=== PATIENT | female | born 1965 | race Caucasian/White ===

== ENCOUNTER 2018-01-30 10:13 | Emergency (ER) | payer BC ==
[2018-01-30] MEDS ORDERED: ALBUTEROL 2.5 MG/3 ML NEB SOL ONE ×2 (11:20→11:56)
[2018-01-30] MEDS ORDERED: IPRATROPIUM BROM 0.5MG/2.5ML ONE (11:20)
--- NOTE | 2018-01-30 12:29 | ER ---
Nurse's Notes [facility] Name: Angela Hernandez Age: 52 yrs Sex: Female : 1965 Arrival Date: 01/30/2018 Time: 10:15 Bed 14 Private MD: Diagnosis: Cough;Pneumonia, unspecified organism Presentation: 01/30 10:21 Presenting complaint: Patient states: "I've had a cough for about a month now and its aj1 just gotten worse, and I can't cough anything up. This morning it started feeling like I have a broke rib or something" Reports pain to left side, that is worse when she takes a deep breath. Denies fever. Transition of care: patient was not received from another setting of care. Onset of symptoms was December 2017. Risk Assessment: Do you want to hurt yourself or someone else? Patient reports no desire to harm self or others. Initial Sepsis Screen: Does the patient meet any 2 criteria? No. Patient's initial sepsis screen is negative. Does the patient have a suspected source of infection? No. Patient's initial sepsis screen is negative. Care prior to arrival: None. 10:21 Method Of Arrival: Ambulatory aj1 10:21 Acuity: CARLOS 4 aj1 Triage Assessment: 10:25 General: Appears in no apparent distress. comfortable, Behavior is calm, cooperative, aj1 appropriate for age. Pain: Complains of pain in left lateral posterior chest and left lateral anterior chest Pain currently is 0 out of 10 on a pain scale. at worst was 5 out of 10 on a pain scale. Quality of pain is described as sharp, Aggravated by deep breathing. Neuro: Level of Consciousness is awake, alert, obeys commands. Cardiovascular: Patient's skin is warm and dry. Respiratory: Reports cough that is non-productive, Airway is patent Respiratory effort is even, unlabored, Respiratory pattern is regular, symmetrical, Breath sounds with wheezes bilaterally. 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 - Social history:: Smoking status: Patient uses tobacco products, smokes one-half pack cigarettes per day. - Ebola Screening: : Patient denies travel to an Ebola-affected area in the 21 days before illness onset. Screenin:49 Abuse screen: Denies threats or abuse. Denies injuries from another. Nutritional ch screening: No deficits noted. Tuberculosis screening: No symptoms or risk factors identified. Fall Risk None identified. Assessment: 10:49 General: Appears in no apparent distress. comfortable, Behavior is calm, cooperative, ch appropriate for age. Pain: Complains of pain in chest and left lateral anterior chest and left lateral posterior chest Pain currently is 4 out of 10 on a pain scale. Pain began gradually. Neuro: No deficits noted. Respiratory: Reports shortness of breath cough that is pain with cough pain with respiration Airway is patent Respiratory effort is even, labored, with retractions, Respiratory pattern is tachypnea Breath sounds are coarse Breath sounds with crackles Breath sounds with rhonchi bilaterally. GI: No signs and/or symptoms were reported involving the gastrointestinal system. Derm: Skin is pink, warm \\T\\ dry. 11:33 Reassessment: Patient appears in no apparent distress at this time. Patient and/or ch family updated on plan of care and expected duration. Pain level reassessed. neb treatment stopped for pt to go to X ray. neb treatment restarted upon her return Patient states feeling better. 13:02 Reassessment: Patient appears in no apparent distress at this time. Patient and/or ch family updated on plan of care and expected duration. Pain level reassessed. Patient is alert, oriented x 3, equal unlabored respirations, skin warm/dry/pink. lung sounds much improved, pt is still wheezy but it is much better. TONE STATES HE NEEDS TO CHANGE THE DISCHARGE INSTRUCTIONS. AWAITING DISCHARGE INSTRUCTION PAPERS. Patient states feeling better. Patient states symptoms have improved. Vital Signs: 10:25 BP 116 / 76; Pulse 66; Resp 18; Temp 97.4; Pulse Ox 96% on R/A; Weight 62.14 kg (R); aj1 Height 5 ft. 6 in. (167.64 cm) (R); Pain 0/10; 11:33 BP 116 / 73; Pulse 61; Resp 24; Pulse Ox 98% on Nebulizer Mask; Pain 0/10; ch 12:09 BP 114 / 68; Pulse 55; Resp 14; Temp 98.1; Pulse Ox 99% on Nebulizer Mask; Pain 0/10; ch 13:03 BP 110 / 52; Pulse 71; Resp 16; Temp 99.1; Pulse Ox 97% on R/A; Pain 0/10; ch 10:25 Body Mass Index 22.11 (62.14 kg, 167.64 cm) aj1 ED Course: 10:15 Patient arrived in ED. as 10:24 Triage completed. aj1 10:25 Arm band placed on Patient placed in an exam room. aj1 10:45 Tone Parsons, DEYVI is PHCP. pm1 10:45 Piero Zamorano MD is Attending Physician. pm1 10:46 Yancy Jackson, LINA is Primary Nurse. ch 10:49 No apparent distress. Resting quietly. ch 10:49 Placed in gown. Bed in low position. Call light in reach. Side rails up X 1. Pulse ox ch on. NIBP on. 11:00 No apparent distress. Resting quietly. ch 11:00 Warm blanket given. ch 11:00 No provider procedures requiring assistance completed. Patient did not have IV access ch during this emergency room visit. 11:23 X-ray completed. Patient tolerated procedure well. Patient moved back from radiology. ls3 11:24 Chest Pa And Lat (2 Views) XRAY In Process Unspecified. EDMS Administered Medications: 11:10 Drug: Albuterol 2.5 mg Route: Inhalation; ch 12:08 Follow up: Response: No adverse reaction; Marked relief of symptoms ch 11:10 Drug: AtroVENT Aerosol 0.5 mg Route: Inhalation; ch 12:08 Follow up: Response: No adverse reaction; Marked relief of symptoms ch 11:30 Drug: Albuterol 2.5 mg Route: Inhalation; ch 12:08 Follow up: Response: No adverse reaction; Marked relief of symptoms ch 11:32 Not Given (pt does not have a ride home. ): Tussionex Pennkinetic ER 5 ml PO once ch 11:50 Drug: predniSONE 60 mg Route: PO; ch 13:02 Follow up: Response: No adverse reaction; Marked relief of symptoms ch 12:50 Drug: Rocephin (cefTRIAXone) 1 grams Route: IM; Site: left gluteus; ch 13:02 Follow up: Response: No adverse reaction ch Outcome: 12:28 Discharge ordered by . pm1 13:13 Discharged to home ambulatory. aj1 13:13 Condition: stable 13:13 Discharge instructions given to patient, Instructed on discharge instructions, follow up and referral plans. medication usage, Demonstrated understanding of instructions, follow-up care, medications, Prescriptions given X 4. 13:13 Patient left the ED. aj1 Signatures: Dispatcher [employer] EDMS Yancy Jackson RN RN ch Johnson, Angela, RN RN aj1 Radha Law Patrick, NP RESPIRATORY THERAPY AIDE pm1 Antonio Lynn ls3
--- NOTE | 2018-01-30 12:29 | EDPHYS ---
Physician Documentation [facility] Name: Angela Hernandez Age: 52 yrs Sex: Female : 1965 Arrival Date: 01/30/2018 Time: 10:15 Bed 14 Private MD: ED Physician Piero Zamorano HPI: 01/30 11:05 This 52 yrs old Female presents to ER via Ambulatory with complaints of Cough.pm1 11:05 The patient or guardian reports cough, with no sputum. Onset: The symptoms/episode pm1 began/occurred 1 month(s) ago. Severity of symptoms: in the emergency department the symptoms are actually worse. Modifying factors: The symptoms are alleviated by nothing, the symptoms are aggravated by nothing. Associated signs and symptoms: Pertinent negatives: chest pain, ear ache, fever, nausea, rhinorrhea, sore throat, vomiting. The patient has not experienced similar symptoms in the past. The patient has not recently seen a physician. 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 - Social history:: Smoking status: Patient uses tobacco products, smokes one-half pack cigarettes per day. - Ebola Screening: : Patient denies travel to an Ebola-affected area in the 21 days before illness onset. ROS: 11:05 Constitutional: Negative for fever, chills, and weight loss, Eyes: Negative for injury, pm1 pain, redness, and discharge, ENT: Negative for injury, pain, and discharge, Neck: Negative for injury, pain, and swelling, Cardiovascular: Negative for chest pain, palpitations, and edema. 11:05 Back: Negative for injury. Left rib pain with deep inspiration : Negative for injury, bleeding, discharge, and swelling, MS/Extremity: Negative for injury and deformity, Skin: Negative for injury, rash, and discoloration, Neuro: Negative for headache, weakness, numbness, tingling, and seizure. 11:05 Respiratory: Positive for cough, Negative for shortness of breath, sputum production. Exam: 11:05 Constitutional: This is a well developed, well nourished patient who is awake, alert, pm1 and in no acute distress. Head/Face: Normocephalic, atraumatic. Eyes: Pupils equal round and reactive to light, extra-ocular motions intact. Lids and lashes normal. Conjunctiva and sclera are non-icteric and not injected. Cornea within normal limits. Periorbital areas with no swelling, redness, or edema. ENT: Nares patent. No nasal discharge, no septal abnormalities noted. Tympanic membranes are normal and external auditory canals are clear. Oropharynx with no redness, swelling, or masses, exudates, or evidence of obstruction, uvula midline. Mucous membranes moist. Neck: Trachea midline, no thyromegaly or masses palpated, and no cervical lymphadenopathy. Supple, full range of motion without nuchal rigidity, or vertebral point tenderness. No Meningismus. Chest/axilla: Normal chest wall appearance and motion. Nontender with no deformity. No lesions are appreciated. Cardiovascular: Regular rate and rhythm with a normal S1 and S2. No gallops, murmurs, or rubs. Normal PMI, no JVD. No pulse deficits. 11:05 Abdomen/GI: Soft, non-tender, with normal bowel sounds. No distension or tympany. No guarding or rebound. No evidence of tenderness throughout. Back: No spinal tenderness. No costovertebral tenderness. Full range of motion. Skin: Warm, dry with normal turgor. Normal color with no rashes, no lesions, and no evidence of cellulitis. MS/ Extremity: Pulses equal, no cyanosis. Neurovascular intact. Full, normal range of motion. 11:05 Respiratory: the patient does not display signs of respiratory distress, Respirations: normal, Breath sounds: wheezing: expiratory is scattered. 11:05 Neuro: Orientation: is normal, Motor: is normal, moves all fours, Gait: is steady, at a normal pace, without difficulty. Vital Signs: 10:25 BP 116 / 76; Pulse 66; Resp 18; Temp 97.4; Pulse Ox 96% on R/A; Weight 62.14 kg (R); aj1 Height 5 ft. 6 in. (167.64 cm) (R); Pain 0/10; 11:33 BP 116 / 73; Pulse 61; Resp 24; Pulse Ox 98% on Nebulizer Mask; Pain 0/10; ch 12:09 BP 114 / 68; Pulse 55; Resp 14; Temp 98.1; Pulse Ox 99% on Nebulizer Mask; Pain 0/10; ch 13:03 BP 110 / 52; Pulse 71; Resp 16; Temp 99.1; Pulse Ox 97% on R/A; Pain 0/10; ch 10:25 Body Mass Index 22.11 (62.14 kg, 167.64 cm) aj1 MDM: 10:48 Patient medically screened. pm1 12:27 Data reviewed: vital signs. Data interpreted: Pulse oximetry: on room air is 99 %. pm1 Interpretation: normal. Counseling: I had a detailed discussion with the patient and/or guardian regarding: the historical points, exam findings, and any diagnostic results supporting the discharge/admit diagnosis, radiology results, the need for outpatient follow up, to return to the emergency department if symptoms worsen or persist or if there are any questions or concerns that arise at home, smoking cessation. 01/30 10:52 Order name: Chest Pa And Lat (2 Views) XRAY; Complete Time: 12:59 pm1 Administered Medications: 11:10 Drug: Albuterol 2.5 mg Route: Inhalation; ch 12:08 Follow up: Response: No adverse reaction; Marked relief of symptoms ch 11:10 Drug: AtroVENT Aerosol 0.5 mg Route: Inhalation; ch 12:08 Follow up: Response: No adverse reaction; Marked relief of symptoms ch 11:30 Drug: Albuterol 2.5 mg Route: Inhalation; ch 12:08 Follow up: Response: No adverse reaction; Marked relief of symptoms ch 11:32 Not Given (pt does not have a ride home. ): Tussionex Pennkinetic ER 5 ml PO once ch 11:50 Drug: predniSONE 60 mg Route: PO; ch 13:02 Follow up: Response: No adverse reaction; Marked relief of symptoms ch 12:50 Drug: Rocephin (cefTRIAXone) 1 grams Route: IM; Site: left gluteus; ch 13:02 Follow up: Response: No adverse reaction ch Disposition: 17:46 Co-signature as Attending Physician, Piero Zamorano MD. rn Disposition: 01/30/18 12:28 Discharged to Home. Impression: Cough, Pneumonia, unspecified organism. - Condition is Stable. - Discharge Instructions: How to Use an Inhaler, Community-Acquired Pneumonia, Adult, Steps to Quit Smoking. - Prescriptions for Zithromax Z- Dandre 250 mg Oral Tablet - take 1 tablet by ORAL route as directed for 5 days Day 1 - take two (2) tablets one time. Day 2, 3, 4 , 5 take one (1) tablet once daily.; 6 tablet. Medrol (Dandre) 4 mg Oral Tablets, Dose Pack - take 1 tablet by ORAL route as directed - follow package instructions; 1 packet. Albuterol Sulfate 90 mcg/actuation - inhale 1-2 puff by INHALATION route every 4-6 hours; 1 Inhaler. Guaifenesin AC 10- 100 mg/5 mL Oral Liquid - take 10 milliliter by ORAL route every 4 hours As needed; 240 milliliter. - Medication Reconciliation Form, Thank You Letter, Antibiotic Education form. - Follow up: Emergency Department; When: As needed; Reason: Worsening of condition. Follow up: Private Physician; When: 2 - 3 days; Reason: Recheck today's complaints, Continuance of care, Re-evaluation by your physician. - Problem is new. - Symptoms have improved. Signatures: Dispatcher [employer] EDMS Yancy Jackson RN RN ch Johnson, Angela, RN RN aj1 Piero Zamorano MD MD rn Marinas, Patrick, NP INTERN pm1 Corrections: (The following items were deleted from the chart) 13:01 12:28 01/30/2018 12:28 Discharged to Home. Impression: Cough; Bronchitis, not specified pm1 as acute or chronic. Condition is Stable. Forms are Medication Reconciliation Form, Thank You Letter, Antibiotic Education, Prescription Opioid Use. Follow up: Emergency Department; When: As needed; Reason: Worsening of condition. Follow up: Private Physician; When: 2 - 3 days; Reason: Recheck today's complaints, Continuance of care, Re-evaluation by your physician. Problem is new. Symptoms have improved. pm1 13:13 13:01 01/30/2018 12:28 Discharged to Home. Impression: Cough; Pneumonia, unspecified aj1 organism. Condition is Stable. Discharge Instructions: Acute Bronchitis, Adult, How to Use an Inhaler, Steps to Quit Smoking, Cough, Adult. Prescriptions for Zithromax Z-Dandre 250 mg Oral Tablet - take 1 tablet by ORAL route as directed for 5 days Day 1 - take two (2) tablets one time. Day 2, 3, 4 , 5 take one (1) tablet once daily.; 6 tablet, Medrol (Dandre) 4 mg Oral Tablets, Dose Pack - take 1 tablet by ORAL route as directed - follow package instructions; 1 packet, Albuterol Sulfate 90 mcg/actuation - inhale 1-2 puff by INHALATION route every 4-6 hours; 1 Inhaler, Guaifenesin AC 10-100 mg/5 mL Oral Liquid - take 10 milliliter by ORAL route every 4 hours As needed; 240 milliliter. and Forms are Medication Reconciliation Form, Thank You Letter, Antibiotic Education, Prescription Opioid Use. Follow up: Emergency Department; When: As needed; Reason: Worsening of condition. Follow up: Private Physician; When: 2 - 3 days; Reason: Recheck today's complaints, Continuance of care, Re-evaluation by your physician. Problem is new. Symptoms have improved. pm1
[2018-01-30] MEDS ORDERED: LIDOCAINE 1% MPF 2 ML AMPULE ONE (12:51)
[2018-01-30] MEDS ORDERED: predniSONE 20 MG TAB ONE (12:52)
[2018-01-30] MEDS ORDERED: CEFTRIAXONE 1000 MG/VIAL ONE (12:52)
--- NOTE | 2018-01-30 12:56 | RAD REPORT ---
EXAM DESCRIPTION: Kareen Mahmood And Jay (2 Views)01/30/2018 11:27 am CLINICAL HISTORY: Cough COMPARISON: None FINDINGS: Moderate bilateral reticulonodular opacities are present within the lungs bilaterally. . T he heart is normal size IMPRESSION: Moderate reticulonodular opacities within the lungs may indicate atypical pneumonia. Fol low-up x-ray is recommended to assess stability/resolution
== END 2018-01-30 13:13 | disposition home or self-care (01) ==
LOC: ER 10:13
DX: J18.9 Pneumonia, unspecified organism (principal); F17.200 Nicotine dependence, unspecified, uncomplicated
CPT/HCPCS: 71046; 96372; 99284; J2001; J7512